=== PATIENT | male | born 1995 | race Two or more races ===

== ENCOUNTER 2021-04-05 00:44 | Emergency (ER) | payer SELFPAY ==
[~2021-04-05] VITALS: Ht 177.8 cm; Wt 79.0 kg
[2021-04-05] MEDS ORDERED: OLANZAPINE 10 MG/VIAL IM ONE (01:30)
[2021-04-05 01:52] LABS: BASOPHILS % 0.3 % (0.0-2.0); EOSINOPHILS % 2.7 % (0.0-5.0); HEMATOCRIT. 45.1 % (42.0-52.0); HEMOGLOBIN. 15.2 g/dL (14.0-18.0); LYMPHOCYTES % 42.6 % (20.0-50.0); MEAN CORPUSCULAR HEMOGLOBIN 29.6 pg (28.0-32.0); MEAN PLATELET VOLUME 7.5 fl (7.4-10.4); MONOCYTES % 9.2 % (2.0-8.0); NEUTROPHILS % 45.2 % (40.0-76.0); PLATELET 365 x1000/uL (130-400); RED BLOOD CELL COUNT 5.13 mill/uL (4.7-6.1); RED CELL DISTRIBUTION WIDTH 14.7 % (11.6-14.6)
[2021-04-05 01:57] LABS: CHLORIDE 108 mEq/L (98-107)
[2021-04-05 02:03] LABS: ETHANOL BLOOD < 10 mg/dL
[2021-04-05 02:06] LABS: *AMPHETAMINES SCREEN URINE PRESUMTIVE POSITIVE (NEGATIVE); *BARBITURATES SCREEN URINE NEGATIVE (NEGATIVE)
[2021-04-05 02:07] LABS: *BENZODIAZEPINES SCREEN URINE NEGATIVE (NEGATIVE); *COCAINE SCREEN URINE NEGATIVE (NEGATIVE); METHADONE URINE SCREEN NEGATIVE (NEGATIVE); OPIATES URINE SCREEN NEGATIVE (NEGATIVE); PHENCYCLIDINE URINE SCREEN NEGATIVE (NEGATIVE)
[2021-04-05 02:08] LABS: CANNABINOID URINE SCREEN PRESUMTIVE POSITIVE (NEGATIVE)
[2021-04-05] MEDS ORDERED: LORAZEPAM 2MG/ML CPJ IV ONE (09:30)
[2021-04-05 13:19] VITALS: BP 125/79
== END 2021-04-05 13:25 | disposition home or self-care (01) ==
LOC: ER 00:44
DX: G93.40 Encephalopathy, unspecified (principal); R41.82 Altered mental status, unspecified; R45.1 Restlessness and agitation; F12.10 Cannabis abuse, uncomplicated; F15.10 Other stimulant abuse, uncomplicated
CPT/HCPCS: 36415; 80053; 80305; 80307; 80320; 80329; 85025; 93005; 96372; 96374; 99285; J2060; J3490; Z7610; G0480